=== PATIENT | male | born 1970 | race Caucasian/White ===

== ENCOUNTER 2021-11-12 13:12 | Inpatient (IN) | payer OTHER ==
[~2021-11-12] VITALS: Ht 165.1 cm; Wt 76.7 kg
[2021-11-12] MEDS ORDERED: DILTIAZEM HCL 5MG/ML 5ML VIAL IV ONE ×2 (13:30→15:45)
[2021-11-12 13:58] LABS: BASOPHILS % 0.6 % (0.0-2.0); EOSINOPHILS % 0.1 % (0.0-5.0); HEMATOCRIT. 47.3 % (42.0-52.0); HEMOGLOBIN. 15.9 g/dL (14.0-18.0); MEAN CORPUSCULAR HEMOGLOBIN 28.9 pg (28.0-32.0); MEAN CORPUSCULAR VOLUME 86.2 fL (80.0-94.0); MEAN PLATELET VOLUME 11.9 fl (7.4-10.4); MONOCYTES % 7.7 % (2.0-8.0); NEUTROPHILS % 71.6 % (40.0-76.0); PLATELET 198 x1000/uL (130-400); RED BLOOD CELL COUNT 5.48 mill/uL (4.7-6.1); RED CELL DISTRIBUTION WIDTH 14.9 % (11.6-14.6)
[2021-11-12 14:12] LABS: CHLORIDE 106 mEq/L (98-107)
[2021-11-12 14:21] LABS: ETHANOL BLOOD < 10 mg/dL
[2021-11-12 15:07] LABS: *AMPHETAMINES SCREEN URINE NEGATIVE (NEGATIVE); *BARBITURATES SCREEN URINE NEGATIVE (NEGATIVE); *BENZODIAZEPINES SCREEN URINE NEGATIVE (NEGATIVE); *COCAINE SCREEN URINE NEGATIVE (NEGATIVE); CANNABINOID URINE SCREEN NEGATIVE (NEGATIVE); METHADONE URINE SCREEN NEGATIVE (NEGATIVE); OPIATES URINE SCREEN NEGATIVE (NEGATIVE); PHENCYCLIDINE URINE SCREEN NEGATIVE (NEGATIVE)
[2021-11-12] MEDS ORDERED: SODIUM CHLORIDE 0.9% 1,000 ML IV ONE (16:00)
[2021-11-12] MEDS ORDERED: ACETAMINOPHEN 325MG TABLET PO PRN (19:45)
[2021-11-12] MEDS ORDERED: DIPHENHYDRAMINE 50MG/ML VIAL IV PRN (19:45)
[2021-11-12] MEDS ORDERED: ONDANSETRON HCL 4MG/2ML INJ IV PRN (19:45)
[2021-11-12] MEDS ORDERED: IPRATROPIUM/ALBUTEROL 0.5-3(2.5)MG/3ML NEB HHN PRN (19:45)
[2021-11-12] MEDS ORDERED: CLONIDINE 0.1MG TABLET PO PRN (19:45)
[2021-11-12] MEDS: ENOXAPARIN 40MG/0.4ML SYR SUBCUT SCH (20:17)
[2021-11-12 20:50] VITALS: BP 158/92
[2021-11-12] MEDS ORDERED: DEXTROSE 50% WATER 50ML SYRINGE IV PRN (21:30)
[2021-11-12] MEDS: BLOOD SUGAR DIAGNOSTIC STRIP TEST SCH (21:35)
[2021-11-12] MEDS: INSULIN LISPRO 100 UNITS/ML SUBCUT SCH (21:46)
[2021-11-12] MEDS ORDERED: ASPI-1406 PO (21:51)
[2021-11-12 23:55] VITALS: BP 126/80
[2021-11-13 04:00] VITALS: BP 112/82
[2021-11-13] MEDS: BLOOD SUGAR DIAGNOSTIC STRIP TEST SCH ×5 (06:33→21:00)
[2021-11-13] MEDS: INSULIN LISPRO 100 UNITS/ML SUBCUT SCH ×4 (06:33→21:00)
[2021-11-13 08:00] VITALS: BP 126/80
[2021-11-13 09:46] LABS: BASOPHILS % 0.6 % (0.0-2.0); EOSINOPHILS % 0.9 % (0.0-5.0); HEMATOCRIT. 46.7 % (42.0-52.0); HEMOGLOBIN. 15.7 g/dL (14.0-18.0); LYMPHOCYTES % 24.1 % (20.0-50.0); MEAN CORPUSCULAR HEMOGLOBIN 29.4 pg (28.0-32.0); MEAN CORPUSCULAR VOLUME 87.7 fL (80.0-94.0); MEAN PLATELET VOLUME 13.3 fl (7.4-10.4); MONOCYTES % 8.5 % (2.0-8.0); NEUTROPHILS % 65.9 % (40.0-76.0); PLATELET 181 x1000/uL (130-400); RED BLOOD CELL COUNT 5.32 mill/uL (4.7-6.1); RED CELL DISTRIBUTION WIDTH 15.2 % (11.6-14.6)
[2021-11-13 10:40] LABS: CHLORIDE 103 mEq/L (98-107)
[2021-11-13 12:00] VITALS: BP 145/102
[2021-11-13] MEDS: ASPIRIN 81MG TABLET PO SCH (12:49)
[2021-11-13 16:00] VITALS: BP 138/102
[2021-11-13 20:00] VITALS: BP 149/97
[2021-11-13] MEDS: METOPROLOL TARTRATE 50MG TABLET PO SCH (20:57)
[2021-11-13] MEDS: ENOXAPARIN 40MG/0.4ML SYR SUBCUT SCH (20:58)
[2021-11-14] VITALS: BP 125/79
[2021-11-14 04:00] VITALS: BP 141/87
[2021-11-14] MEDS: BLOOD SUGAR DIAGNOSTIC STRIP TEST SCH ×3 (06:21→18:13)
[2021-11-14 08:00] VITALS: BP 148/89
[2021-11-14] MEDS: ASPIRIN 81MG TABLET PO SCH (09:37)
[2021-11-14] MEDS: METOPROLOL TARTRATE 50MG TABLET PO SCH (09:39)
[2021-11-14] MEDS: INSULIN LISPRO 100 UNITS/ML SUBCUT SCH ×3 (09:43→18:13)
[2021-11-14] MEDS ORDERED: POTASSIUM CHLORIDE 20MEQ TABLET SR PO NR (11:15)
[2021-11-14 12:00] VITALS: BP 141/88
[2021-11-14] MEDS ORDERED: METO-539 PO (12:43)
[2021-11-14 16:00] VITALS: BP 139/78
[2021-11-14 18:36] VITALS: BP 153/97
== END 2021-11-14 19:30 | disposition home or self-care (01) | DRG 201 ==
LOC: ER 13:19 → 6WST 16:50 → EDBEDREQTM 17:05 → EDBEDREQ 17:05 → ENRESERV 19:37
PROVIDERS: ADMIT Internal Medicine; ATTEND Internal Medicine
DX: I48.0 Paroxysmal atrial fibrillation (principal); D68.69 Other thrombophilia; E11.9 Type 2 diabetes mellitus without complications; E87.6 Hypokalemia; I47.1 Supraventricular tachycardia; I10 Essential (primary) hypertension; R74.01 Elevation of levels of liver transaminase levels; F43.10 Post-traumatic stress disorder, unspecified
CPT/HCPCS: 36415; 71045; 80053; 80305; 80320; 82010; 82962; 83036; 83605; 83880; 84484; 85025; 93005; 93306; 93970; 99291; J1650; J1815; J3490; J7030; G0480